=== PATIENT | female | born 1945 | race Caucasian/White ===

== ENCOUNTER 2022-04-03 15:10 | Outpatient (CLI) | payer MEDICARE, BC | END 2022-04-03 15:11 | disposition home or self-care (01) | LOC: CSHMRI 15:10 | PROVIDERS: ATTEND Orthopaedic Surgery | DX: M48.062 Spinal stenosis, lumbar region with neurogenic claudication (principal); M47.816 Spondylosis without myelopathy or radiculopathy, lumbar region; E27.8 Other specified disorders of adrenal gland | CPT/HCPCS: 72148 ==